=== PATIENT | male | born 1950 | race Hispanic/Latino ===

== ENCOUNTER 2023-09-10 09:08 | Outpatient (CLI) | payer MEDICARE, OTHER | END 2023-09-10 09:09 | disposition home or self-care (01) | LOC: BICRAD 09:08 | PROVIDERS: ATTEND Specialist | DX: M25.551 Pain in right hip (principal); M25.552 Pain in left hip; R05.3 Chronic cough; M16.0 Bilateral primary osteoarthritis of hip; I51.7 Cardiomegaly | CPT/HCPCS: 71046 ==

== ENCOUNTER 2023-12-12 10:28 | Outpatient (CLI) | payer OTHER ==
[2023-12-12] MEDS ORDERED: Iopamidol 370 76% 100 ML VIAL ONE (13:02)
== END 2023-12-12 10:29 | disposition home or self-care (01) ==
LOC: BICCT 10:28
PROVIDERS: ATTEND Physician Assistant
DX: I77.819 Aortic ectasia, unspecified site (principal)
CPT/HCPCS: 71275; 82565; Q9967